=== PATIENT | female | born 2005 | race Two or more races ===

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

== ENCOUNTER 2025-01-30 19:54 | Emergency (ER) | payer MEDICAID, OTHER ==
[~2025-01-30] VITALS: Ht 149.9 cm; Wt 62.0 kg
[2025-01-30 20:01] VITALS: TEMP 36.7; O2SAT 100
[2025-01-30 21:23] LABS: BASOPHILS % 0.8 % (0.0-2.0); EOSINOPHILS % 2.0 % (0.0-5.0); HEMATOCRIT. 32.2 % (36.0-48.0); HEMOGLOBIN. 11.3 g/dL (12.0-16.0); LYMPHOCYTES % 22.5 % (20.0-50.0); MEAN PLATELET VOLUME 7.8 fl (7.4-10.4); MONOCYTES % 8.0 % (2.0-8.0); NEUTROPHILS % 66.7 % (40.0-76.0); PLATELET 308 x1000/uL (130-400); RED BLOOD CELL COUNT 3.83 mill/uL (4.2-5.4); RED CELL DISTRIBUTION WIDTH 12.5 % (11.6-14.6)
[2025-01-30 21:34] LABS: HCG SCREEN POSITIVE
[2025-01-30 21:37] LABS: CREATININE 0.7 mg/dL (0.6-1.0); UREA NITROGEN BLOOD 5 mg/dL (9-23)
[2025-01-30 21:39] LABS: ASPARTATE AMINOTRANSFERASE 12 IU/L (<34); BILIRUBIN DIRECT 0.3 mg/dL (<=3.0); BILIRUBIN TOTAL 0.7 mg/dL (0.1-1.0); PROTEIN TOTAL 6.6 g/dL (6.0-8.3)
[2025-01-30 21:48] LABS: B-HCG QUANTITATIVE 52330 mIU/mL (<6)
[2025-01-30 22:20] LABS: CLARITY URINE CLEAR (CLEAR); COLOR URINE YELLOW (YELLOW); GLUCOSE URINE NEGATIVE (NEGATIVE); KETONES URINE NEGATIVE (NEGATIVE); LEUKOCYTE ESTERASE URINE 2+ (NEGATIVE); NITRITE URINE NEGATIVE (NEGATIVE); OCCULT BLOOD URINE NEGATIVE (NEGATIVE); PH URINE 8.0 (4.5-8.0); PROTEIN URINE NEGATIVE (NEGATIVE); SPECIFIC GRAVITY URINE 1.009 (1.005-1.030); UROBILINOGEN URINE 1.0 E.U./dL (0.2-1.0)
[2025-01-30 22:36] LABS: BACTERIA URINE TRACE; RBC URINE NONE SEEN /hpf (0-2); SQUAMOUS EPITHELIAL CELL URINE FEW /lpf (RARE/1+)
[2025-01-30] MEDS ORDERED: CEPH500C2 MT (22:36)
[2025-01-30] MEDS: CEPHALEXIN 250MG CAPSULE PO ONE (23:07)
[2025-01-30 23:08] VITALS: BP 101/62; PULSE 82; RESP 12; O2SAT 100
== END 2025-01-30 23:19 | disposition home or self-care (01) ==
LOC: ER 19:54
DX: O23.41 Unspecified infection of urinary tract in pregnancy, first trimester (principal); O20.0 Threatened abortion; Z3A.08 8 weeks gestation of pregnancy
CPT/HCPCS: 36415; 76801; 80048; 80076; 81003; 84702; 84703; 85025; 86850; 86900; 99284